=== PATIENT | female | born 1975 | race Caucasian/White ===

== ENCOUNTER 2021-05-26 04:17 | Emergency (ER) | payer OTHER ==
[~2021-05-26] VITALS: Ht 177.8 cm; Wt 54.5 kg
[2021-05-26 05:01] LABS: BASOPHILS % (AUTO) 0.4 % (0-1); EOSINOPHILS # (AUTO) 0.1 X10'3 (0-0.9); EOSINOPHILS % (AUTO) 1.1 % (0-6); HEMATOCRIT 39.2 % (35.0-45.0); HEMOGLOBIN 13.1 g/dl (12.0-16.0); LYMPHOCYTES % (AUTO) 33.4 % (21-51); MEAN CORPUSCULAR HEMOGLOBIN 31.8 PG (27.0-31.0); MEAN CORPUSCULAR HGB CONC 33.3 g/dL (33.0-36.5); MEAN CORPUSCULAR VOLUME 95.5 FL (78-98); MEAN PLATELET VOLUME 7.9 FL (7.4-10.4); MONOCYTES # (AUTO) 0.7 X10'3 (0-0.9); MONOCYTES % (AUTO) 8.3 % (2-12); NEUTROPHILS # (AUTO) 5.1 X10'3 (1.8-7.7); NEUTROPHILS % (AUTO) 56.8 % (42-75); PLATELET COUNT 217 X10'3 (140-440); RED CELL DISTRIBUTION WIDTH 14.8 % (11.5-14.5)
[2021-05-26 05:40] LABS: ALANINE AMINOTRANSFERASE 65 U/L (12-78); ALBUMIN 3.4 G/DL (3.4-5.0); ALBUMIN/GLOBULIN RATIO 0.9 (1.1-1.5); ALKALINE PHOSPHATASE 116 IU/L (46-116); ANION GAP 12 (8-16); ASPARTATE AMINO TRANSFERASE 59 U/L (10-37); BILIRUBIN,TOTAL 0.6 MG/DL (0.1-1.0); BLOOD UREA NITROGEN 15 MG/DL (7-18); BUN/CREATININE RATIO 25.9 (6.6-38.0); CALCIUM 7.9 MG/DL (8.5-10.1); CHLORIDE 110 MMOL/L (99-107); CREATININE 0.58 MG/DL (0.40-0.90); GLUCOSE 87 MG/DL (70-104); LIPASE 101 U/L (73-393); POTASSIUM 3.6 MMOL/L (3.5-5.1); SODIUM 147 MMOL/L (135-145); TOTAL CARBON DIOXIDE 24.9 MMOL/L (24-32); TOTAL PROTEIN 7.3 G/DL (6.4-8.2); eGFR > 90 ML/MIN
--- NOTE | 2021-05-26 05:50 | NUR ---
Patient requesting medications such as Librium, ativan, or valium. Pt stated that if we werent going to help her, then she was going to leave. Pt called . MD notified. Patient to stay in ER bed and continue care until arrives.
[2021-05-26 07:35] VITALS: BP 103/65
[2021-05-26] MEDS ORDERED: GABA300C PO (07:35)
== END 2021-05-26 07:47 | disposition home or self-care (01) ==
LOC: EDBD 04:18 → ER 04:18
DX: F10.129 Alcohol abuse with intoxication, unspecified (principal); F10.10 Alcohol abuse, uncomplicated; K92.0 Hematemesis; R10.13 Epigastric pain; Z88.5 Allergy status to narcotic agent; Z79.899 Other long term (current) drug therapy; Y90.9 Presence of alcohol in blood, level not specified
CPT/HCPCS: 36415; 70450; 73610; 80053; 83690; 85025; 85610; 99285

== ENCOUNTER 2021-05-27 07:25 | Emergency (ER) | payer SELFPAY ==
[~2021-05-27] VITALS: Ht 177.8 cm; Wt 54.5 kg
[~2021-05-27 07:25] MED LIST: GABA300C PO
[2021-05-27 07:26] VITALS: BP 132/92
[2021-05-27] MEDS ORDERED: chlordiazePOXIDE 25mg capsule PO ONE (09:10)
[2021-05-27] MEDS ORDERED: diazepam 2mg tablet PO ONE (09:22)
== END 2021-05-27 09:49 | disposition home or self-care (01) ==
LOC: ER 07:26
DX: F10.29 Alcohol dependence with unspecified alcohol-induced disorder (principal); Z88.5 Allergy status to narcotic agent
CPT/HCPCS: 99283

== ENCOUNTER 2021-06-01 07:29 | Emergency (ER) | payer SELFPAY ==
[~2021-06-01] VITALS: Ht 177.8 cm; Wt 59.0 kg
[2021-06-01 07:44] VITALS: BP 146/83
[2021-06-01] MEDS ORDERED: chlordiazePOXIDE 25mg capsule PO ONE (08:20)
[2021-06-01] MEDS ORDERED: ondansetron 4mg rapidly disintigrating tab PO ONE (08:20)
[2021-06-01] MEDS ORDERED: ONDA4TAB6 PO (08:26)
[2021-06-01] MEDS ORDERED: GABA-534 PO (08:26)
[2021-06-01] MEDS ORDERED: chlordiazePOXIDE 5mg capsule PO ONE (08:30)
--- NOTE | 2021-06-01 09:20 | NUR ---
Patient seen and assessed by provider.
== END 2021-06-01 09:27 | disposition home or self-care (01) ==
LOC: ER 07:30
DX: F10.239 Alcohol dependence with withdrawal, unspecified (principal); E03.9 Hypothyroidism, unspecified; Z72.89 Other problems related to lifestyle; Z88.5 Allergy status to narcotic agent; Z79.899 Other long term (current) drug therapy; Y90.9 Presence of alcohol in blood, level not specified
CPT/HCPCS: 99283